=== PATIENT | male | born 1995 | race Caucasian/White ===

== ENCOUNTER 2018-03-02 22:34 | Emergency (ER) | payer OTHER ==
[~2018-03-02] VITALS: Ht 175.3 cm; Wt 90.5 kg
[~2018-03-02 22:34] MED LIST: NOHOMEMEDS
[2018-03-03] MEDS ORDERED: TRAMADOL HCL50 MG PO (00:51)
[2018-03-03] MEDS ORDERED: FLEXERIL10 MG PO (00:51)
[2018-03-03] MEDS ORDERED: NAPROSYN500 MG PO (00:51)
[2018-03-03] MEDS ORDERED: PEN-VEE K,VEET500 MG PO (00:51)
[2018-03-03 00:58] VITALS: BP 148/93
== END 2018-03-03 00:59 | disposition home or self-care (01) ==
LOC: EME 22:34
DX: K04.7 Periapical abscess without sinus (principal); F17.210 Nicotine dependence, cigarettes, uncomplicated
CPT/HCPCS: 99281; 99283; J1885

== ENCOUNTER 2018-05-10 03:08 | Emergency (ER) | payer OTHER ==
[~2018-05-10] VITALS: Ht 175.3 cm; Wt 86.8 kg
[~2018-05-10 03:08] MED LIST changes: +FLEXERIL10 MG PO; +NAPROSYN500 MG PO; +PEN-VEE K,VEET500 MG PO; +TRAMADOL HCL50 MG PO
[2018-05-10 04:26] VITALS: BP 136/83
== END 2018-05-10 04:28 | disposition home or self-care (01) ==
LOC: EME 03:08
DX: S90.811A Abrasion, right foot, initial encounter (principal); W22.8XXA Striking against or struck by other objects, initial encounter
CPT/HCPCS: 73630; 99281; 99282